=== PATIENT | female | born 1940 | race Caucasian/White ===

== ENCOUNTER 2022-11-18 06:55 | Observation (INO) | payer MEDICARE, OTHER ==
[2022-11-12 09:16] VITALS: BP 13/80
[~2022-11-18] VITALS: Ht 160 cm; Wt 81.8 kg
[2022-11-18] VITALS (11 sets, daily range): BP systolic 70–167; BP diastolic 46–90
[~2022-11-18 06:55] MED LIST: K2 PLUS D3 TAB1 EACH PO; LISINOPRIL10 MG PO
[2022-11-18 18:09] LABS: BASOPHILS 0.7 % (0-2); HEMATOCRIT 32.9 % (35.0-50.0); LYMPHOCYTES 4.6 % (24-44); MCH 30.2 (27-36); MCHC 33.4 g/dl (30-36); MCV 90.3 fl (81-99); MONOCYTES 3.1 % (0-12); NEUTROPHILS 91.6 % (39-80); PLATELET COUNT 253 K/uL (140-440); RBC 3.64 M/ul (4.3-5.7); RDW 14.2 (10.5-15.0)
[2022-11-18 18:22] LABS: ANION GAP 13.9 (7-21); BUN/CREATININE RATIO 14.52 (6.0-28.6); CALCIUM 8.7 mg/dL (8.5-10.1); CREATININE, SERUM 1.17 mg/dL (0.55-1.02); MAGNESIUM 1.8 mg/dL (1.8-2.4); POTASSIUM 3.9 mmol/L (3.5-5.1)
--- NOTE | 2022-11-18 18:54 | OR ---
[facility] [address] [place], [place] [address] Signed DATE OF OPERATION: 11/18/2022 SURGEON: Brandy Chavez MD PREOPERATIVE DIAGNOSES: Left breast cancer at the 5 o'clock position with pleomorphic calcifications 3 cm anterior to this breast cancer. POSTOPERATIVE DIAGNOSES: Left breast cancer at the 5 o'clock position with pleomorphic calcifications 3 cm anterior to this breast cancer. PROCEDURES: 1. Injection of methylene blue. 2. Left sentinel lymph node biopsy x1. 3. Left total mastectomy. 4. Placement of drains x2. ESTIMATED BLOOD LOSS: None. INDICATIONS: Karla is an 81-year-old female who still has good muscular mass and good functional status. 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 She has actually adopted some of the children. They come home for the summer to escape the heat and all the mosquitos. They go back every year to teach and be with her adoptive family. She had a mammogram in 2018, which was negative. She had a repeat mammogram on October 20, 2022. She had a mass at the 5 o'clock position in the left lower outer quadrant. 3 cm anterior to this mass was a pleomorphic calcifications. When she went back for the compression views, both areas persisted. She then had ultrasound-guided biopsy of the mass that same day. They felt it was 7 x 7 x 9 mm. It seemed to be possibly longer on the core needle biopsies. There was no obvious lymph nodes visualized radiographically. Of course, the radiologist had recommended stereotactic biopsies of the pleomorphic calcifications depending on clinical input. 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 The longus core measured 18 mm. Her ER and WV receptors were positive. The HER-2/laura was also positive. I had met with Karla in the office. Her family has already gone back up to [place] for the year. She has some other relatives in our area. I went through all her records in great detail with her. I gave her our brochure on Electronically Signed By: BRANDY CHAVEZ MD 11/18/22 3974 PATIENT NAME: KARLA SPARKS OPERATIVE REPORT DATE OF : 38 REPORT #: [id number] PHYSICIAN: BRANDY CHAVEZ MD PCP: SUZANNE VILLA REPORT IS CONFIDENTIAL AND NOT TO BE RELEASED WITHOUT AUTHORIZATION [facility] [address] [place], [place] [address] Signed breast, breast biopsies and breast surgery. We went through all the options including the stereotactic-guided biopsy of the pleomorphic calcifications. Her breasts are large enough, she could probably have a quadrantectomy and a sentinel lymph node biopsy. She told me she did not want to go that route. She wanted her entire breast removed. I explained her rather than remove her entire axilla, which increases the lymphedema rate of her arm we would proceed with a sentinel lymph node biopsy and that will place us directly below the axillary hairline as usual. That represents around 1/3 maybe a little more of the axilla. Of course, we would do more if necessary depending on the radionuclide scan. I was able to show her in the book and explained to her the nature of the surgery. She understands there will be two drains placed, one will be in the axilla. The other be across her chest wall. She will be in the hospital overnight and discharged home the following day. There is risk to the surgery including, but not limited to bleeding, infection, scarring, change in contour of the skin as well as possible need for additional surgery. We also reviewed the concept of adjuvant chemotherapy and radiation therapy. She had expressed understanding and wished to proceed. PROCEDURE IN DETAIL: I met with Toytasia and one of her friends in our preop area. Karla and I both agreed on the left breast. We marked that appropriately. She has already been to the Radiology Department this morning for injection of the technetium sulfur colloid. She has one sentinel lymph node lit up in the axilla in the usual position. After this, Karla was taken into the operating room and placed in the supine position under general endotracheal tube anesthesia. She was given preoperative antibiotics. She was given subcutaneous heparin. SCDs were utilized. She was then prepped and draped in the usual sterile fashion. I injected methylene blue underneath the nipple areolar complex. The area was gently massaged for 5 full minutes. After this, we used a silk suture to kenyatta out the standard transverse incision across the breast to include the nipple areolar complex. We developed that sharply with a knife and then additionally with the cautery. We carried that down towards axilla and we continued up towards the edge of the axillary hairline with the help of the Onset counter. We were able to go directly to the lymph node. It also contained a methylene blue. It was excised and passed off the field. There was no additional counts in the axilla whatsoever neither inferior up superiorly. I palpated in the upper part of the axilla, did not feel any additional lymph nodes. After this, we finished the mastectomy. We developed flaps all the way to the middle of the sternum up to the clavicle down the inframammary crease. We passed the area of the palpable mass a little closer to the skin and the rest of the flaps. It should be fine. We brought the entire specimen off the chest wall with the help of cautery medial to lateral and across the lateral edge of the pectoralis major muscle and down into the axilla just a bit to where we took out the sentinel lymph node. In this way, the entire specimen was removed en bloc. We then marked the specimen appropriately with a long stitch lateral, short stitch superior and a double stitch medial. The Electronically Signed By: BRANDY CHAVEZ MD 11/18/22 1854 PATIENT NAME: KARLA SPARKS OPERATIVE REPORT DATE OF : 38 REPORT #: [id number] PHYSICIAN: BRANDY CHAVEZ MD PCP: SUZANNE VILLA REPORT IS CONFIDENTIAL AND NOT TO BE RELEASED WITHOUT AUTHORIZATION [facility] [address] [place], [place] [address] Signed entire specimen was then passed off the field. The entire wound was irrigated and suctioned out until clear. We brought a #7 flat Bertram drain into the axilla below the inframammary crease. We cut at the length and held in place with 2-0 nylon suture. Additionally, we brought second 7 mm Bertram drain through the [facility] crease about 3 cm medial to that first drain and it comes around to the medial side of the sternum and back up towards the clavicle. It was also held in place to the level of skin with 2-0 nylon suture. The entire wound was copiously irrigated with warm water and suctioned out until clear. All hemostasis was excellent. We then closed the dermis with multiple interrupted 3-0 subcuticular Monocryl sutures. The skin edges were reapproximated with a running 5-0 fast absorbing plain gut suture. We cut the drain to length and put the bulb on the end of the drain tubing. Mastectomy team had fitted her for a camisole. While she was still asleep we put that in place with the appropriate fluffed gauze on the left side of her chest wall. After this we transferred over to her hospital bed. She was awakened from her anesthesia, extubated in the OR, and taken to recovery room in stable condition. Brandy Chavez MD ALB/MODL /[id number] cc: MD Suzanne Frost Copies: BRANDY CHAVEZ MD ~ Electronically Signed By: BRANDY CHAVEZ MD 11/18/22 1854 PATIENT NAME: KARLA SPARSK OPERATIVE REPORT DATE OF : 39 REPORT #: [id number] PHYSICIAN: BRANDY CHAVEZ MD PCP: SUZANNE VILLA REPORT IS CONFIDENTIAL AND NOT TO BE RELEASED WITHOUT AUTHORIZATION
[2022-11-18 23:38] LABS: ABO O
[2022-11-18 23:39] LABS: RH NEGATIVE
[2022-11-18 23:40] LABS: ANTIBODY SCREEN NEGATIVE
[2022-11-18 23:51] LABS: BASOPHILS 0.3 % (0-2); EOSINOPHILS 0.1 % (0-6); HEMATOCRIT 30.4 % (35.0-50.0); HEMOGLOBIN 10.1 g/dL (12.0-18.0); MCH 29.9 (27-36); MCHC 33.2 g/dl (30-36); MCV 89.9 fl (81-99); MONOCYTES 4.2 % (0-12); NEUTROPHILS 91.4 % (39-80); PLATELET COUNT 221 K/uL (140-440); RBC 3.38 M/ul (4.3-5.7)
[2022-11-19 02:03] VITALS: BP 110/48
[2022-11-19 05:57] VITALS: BP 103/45
[2022-11-19 06:07] LABS: ANION GAP 14.5 (7-21); BUN/CREATININE RATIO 17.54 (6.0-28.6); CALCIUM 8.6 mg/dL (8.5-10.1); CREATININE, SERUM 1.14 mg/dL (0.55-1.02); MAGNESIUM 2.5 mg/dL (1.8-2.4); POTASSIUM 4.5 mmol/L (3.5-5.1)
[2022-11-19 07:17] LABS: BASOPHILS 0.5 % (0-2); EOSINOPHILS 0.1 % (0-6); HEMATOCRIT 27.1 % (35.0-50.0); HEMOGLOBIN 9.2 g/dL (12.0-18.0); LYMPHOCYTES 14.9 % (24-44); MCH 30.7 (27-36); MCV 90.3 fl (81-99); NEUTROPHILS 75.5 % (39-80); PLATELET COUNT 187 K/uL (140-440); RDW 14.1 (10.5-15.0)
[2022-11-19 07:45] VITALS: BP 101/47
[2022-11-19 11:10] LABS: BASOPHILS 0.4 % (0-2); EOSINOPHILS 0.3 % (0-6); HEMATOCRIT 26.8 % (35.0-50.0); LYMPHOCYTES 17.3 % (24-44); MCH 29.9 (27-36); MCHC 33.4 g/dl (30-36); MCV 89.5 fl (81-99); PLATELET COUNT 136 K/uL (140-440); RBC 2.99 M/ul (4.3-5.7); RDW 14.3 (10.5-15.0)
[2022-11-19 12:27] VITALS: BP 100/45
[2022-11-19 12:34] LABS: IS CROSSMATCH COMPATIBLE
--- NOTE | 2022-11-19 12:40 | EKG ---
[facility] [address] [facility] [place] [address] Signed Normal sinus rhythm Septal infarct (cited on or before 12-NOV-2022) Abnormal ECG When compared with ECG of 12-NOV-2022 09:24, No significant change was found Confirmed by AVANI TREVINO MD ([id number]) on 11/19/2022 12:40:08 PM Electronically Signed By: AVANI TREVINO 11/19/22 1240 PATIENT NAME: WIL SPARKSARIANE NASCIMENTOUDE Electrocardiogram DATE OF : 38 PHYSICIAN: AVANI TREVINO REPORT #: [id number] REPORT IS CONFIDENTIAL AND NOT TO BE RELEASED WITHOUT AUTHORIZATION
[2022-11-19 19:08] LABS: BASOPHILS 0.6 % (0-2); EOSINOPHILS 1.8 % (0-6); HEMOGLOBIN 6.2 g/dL (12.0-18.0); LYMPHOCYTES 26.3 % (24-44); MCH 30.7 (27-36); MCHC 32.4 g/dl (30-36); MCV 94.6 fl (81-99); MONOCYTES 10.6 % (0-12); NEUTROPHILS 60.7 % (39-80); PLATELET COUNT 76 K/uL (140-440); RBC 2.01 M/ul (4.3-5.7)
[2022-11-19 20:12] LABS: BASOPHILS 0.9 % (0-2); EOSINOPHILS 1.9 % (0-6); HEMOGLOBIN 10.2 g/dL (12.0-18.0); LYMPHOCYTES 24.4 % (24-44); MCH 30.5 (27-36); MCHC 33.9 g/dl (30-36); MONOCYTES 9.8 % (0-12); PLATELET COUNT 208 K/uL (140-440); RBC 3.33 M/ul (4.3-5.7); RDW 14.4 (10.5-15.0)
[2022-11-19 21:04] VITALS: BP 116/49
[2022-11-20 03:03] VITALS: BP 120/49
[2022-11-20 05:58] VITALS: BP 116/46
[2022-11-20 08:46] VITALS: BP 125/45
--- NOTE | 2022-11-20 16:51 | PATH ---
[facility] [address] [facility] [place], [place] [address] Signed SPECIMEN(S): A LEFT SLN SPECIMEN(S): B LEFT BREAST SPECIMEN SOURCE: A. LEFT SLN B. LEFT BREAST CLINICAL HISTORY: Ductal carcinoma of left breast Specimen Time to Fixation- 11/18/2022 FINAL PATHOLOGIC DIAGNOSIS: A. Lymph node, left sentinel, excision: - One lymph node, negative for metastatic carcinoma (0/1) B. Breast, left, mastectomy: - Invasive ductal carcinoma, see synoptic report INVASIVE CARCINOMA OF THE BREAST: Resection Applies To: A, B SPECIMEN Procedure: Total mastectomy Specimen Laterality: Left TUMOR Tumor Site: Clock position 5 o'clock Histologic Type: Invasive carcinoma of no special type (ductal) Glandular (Acinar) / Tubular Differentiation: Score 3 Nuclear Pleomorphism: Score 2 Mitotic Rate: Score 3 Overall Grade: Grade 3 (scores of 8 or 9) Tumor Size: Greatest dimension of largest invasive focus (Millimeters) - 20 mm Ductal Carcinoma In Situ (DCIS): Not identified Lymphovascular Invasion: Not identified Microcalcifications: Not identified Treatment Effect in the Breast: No known presurgical therapy MARGINS Margin Status for Invasive Carcinoma: Invasive carcinoma present at margin Margin(s) Involved by Invasive Carcinoma: Inferior - Multifocal REGIONAL LYMPH NODES Regional Lymph Node Status: All regional lymph nodes negative for tumor PATIENT NAME: IEVTT SPARKS SUZANNA PATHOLOGY DATE OF : 38 REPORT #: [id number] PHYSICIAN: [employer] PATHOLOGY PCP: SABAS VILLA PHOTO LAB MANAGER REPORT IS CONFIDENTIAL AND NOT TO BE RELEASED WITHOUT AUTHORIZATION [facility] [address] [facility] [place] [address] Signed Total Number of Lymph Nodes Examined (sentinel and non-sentinel): 1 Number of Gardner Nodes Examined: 1 PATHOLOGIC STAGE CLASSIFICATION (pTNM, AJCC 8th Edition) Reporting of pT, pN, and (when applicable) pM categories is based on information available to the pathologist at the time the report is issued. As per the AJCC (Chapter 1, 8th Ed.) it is the managing physician's responsibility to establish the final pathologic stage based upon all pertinent information, including but potentially not limited to this pathology report. pT Category: pT1c Regional Lymph Nodes Modifier: (sn): Gardner node(s) evaluated. pN Category: pN0 Breast Biomarker Testing Performed on Previous Biopsy: Estrogen Receptor (ER) Status: Positive (greater than 10% of cells demonstrate nuclear positivity) Progesterone Receptor (PgR) Status: Positive HER2 (by immunohistochemistry): Positive (Score 3+) Testing Performed on COMMENT: For part A, an immunohistochemical stain for AE1/AE3 is performed and supports the above interpretation. As part of [facility]' Quality Improvement Program, this case was reviewed by another member of our pathology staff. BRP MICROSCOPIC EXAMINATION: Histologic sections of all submitted blocks are examined by light microscopy. These findings, together with the gross examination, support the pathologic diagnosis. GROSS DESCRIPTION: A. The specimen, labeled and designated "Joselito, Debra" and designated on the requisition "left sentinel lymph node," is received in formalin and consists of one yellow-grande blue-tinged possible lymph node (1.8 x 1.4 x 0.9 cm). The possible lymph node is serially sectioned and submitted entirely in cassette A1. Cold ischemic time: Cannot be calculated due to insufficient information The tissue was fixed in formalin for at least 24 and less than 48 hours B. The specimen, labeled and designated "Tae Sparks" and designated on the requisition "left breast," is received in formalin and consists of a mastectomy PATIENT NAME: IVETT SPARKS PATHOLOGY DATE OF : 38 REPORT #: [id number] PHYSICIAN: CYNTHIA QUINONES PCP: SABAS VILLA REPORT IS CONFIDENTIAL AND NOT TO BE RELEASED WITHOUT AUTHORIZATION [facility] [address] [place], [place] [address] Signed (1103 g, 21.5 cm superior to inferior, 19.4 cm medial to lateral, 7.0 cm anterior to posterior) with attached portion of grande-pink skin on the anterior aspect that measures 23.4 cm in length by 4.4 cm in width) with central brown-grande areola (4.0 x 3.7 cm) and grande everted nipple (1.2 x 1.2 x 0.7 cm). The specimen is inked as follows: Blue= Superior Green = Inferior Black = Posterior Specimen is serially sectioned from medial to lateral to reveal a white-grande firm mass (1.3 x 2.0 x 1.3 cm) at 5:00 located 0.1 cm from the inferior margin, 2.2 cm from the posterior margin, 6.5 cm from the skin, and 15 cm from the superior margin. There is a vision clip within the mass. The remaining cut surface shows yellow-grande fatty tissue. Forensic Materials Engineer sections are submitted as follows: Cassette Summary: (B1-B3) mass to inferior margin (B4) posterior margin closest to mass (B5) skin and superior margin closest to mass (B6) nipple, serially sectioned (B7) subadjacent section from nipple, shaved, en face (B8) upper inner quadrant (B9) lower inner quadrant (B10) upper outer quadrant (B11) lower outer quadrant Cold ischemic time: Cannot be calculated due to insufficient information The tissue was fixed in formalin for at least 24 and less than 48 hours AC (under the direct supervision of a pathologist) The Gross Description was prepared using a voice recognition system. The report was reviewed for accuracy; however, sound-alike word errors, addition and/or deletions may occur. If there is any question about this report, please contact Client Services. ADDITIONAL NOTES: Immunohistochemical and/or in situ hybridization studies if performed in this case included appropriate positive controls that reacted as expected. This test was developed and its performance characteristics determined by [facility]. It has not been cleared or approved by the U.S. Food and Drug Administration. The FDA has determined that such clearance or approval is not PATIENT NAME: IVETT SPARKS PATHOLOGY DATE OF : 38 REPORT #: [id number] PHYSICIAN: CYNTHIA QUINONES PCP: SABAS VILLA REPORT IS CONFIDENTIAL AND NOT TO BE RELEASED WITHOUT AUTHORIZATION [address] [address] Signed necessary. This test is used for clinical purposes. It should not be regarded as investigational or for research. [facility] is certified under the Clinical Laboratory Improvement Amendments of 1988 (CLIA) as qualified to perform high complexity clinical laboratory testing. PERFORMING LABORATORY: Technical component was performed by [facility], [address] [place] [id number] (CLIA# [id number]). Professional interpretation was performed by [facility] - [address] [id number] Diagnostician: Garrett Hou MD Pathologist Electronically Signed 11/20/2022 Copies: ~ PATIENT NAME: IVETT SPARKS PATHOLOGY DATE OF : 38 REPORT #: [id number] PHYSICIAN: [facility]IA PATHOLOGY PCP: SABAS VILLA REPORT IS CONFIDENTIAL AND NOT TO BE RELEASED WITHOUT AUTHORIZATION
--- NOTE | 2022-11-23 07:13 | DS ---
[facility] [address] [place], [place] [address] Signed ADMISSION DATE: 11/18/2022 DISCHARGE DATE: 11/20/2022 FINAL DIAGNOSES: 1. Left breast cancer. 2. Postoperative wound hematoma. PROCEDURES: 1. Injection of methylene blue. 2. Left sentinel lymph node biopsy x1. 3. Left total mastectomy. 4. Placement of subcutaneous drains x2. 5. Infusion 1 unit packed red blood cells. 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 She and her have been going to [place] [facility] every year to teach the [place] people. They have some adoptive children and grandchildren up there as well. They usually come home for the hoang here to [facility]. She was found to have a mass in the lower outer quadrant of the left breast at about the 5 o'clock position on her mammogram and ultrasound. About 3 cm anterior to that, she had an area of pleomorphic calcifications. Ultrasound-guided biopsy by the radiologist revealed a ductal carcinoma. The ER/MA receptors were positive. HER-2/laura is also positive. She had been asked to see me as the local general surgeon. The radiologist had recommended stereotactic biopsy of the pleomorphism calcifications as clinically indicated. After talking with Karla, she wanted a mastectomy. We therefore did not order the stereotactic biopsy. I explained to Karla we could actually do a sentinel lymph node biopsy and that would leave her with a simple, total mastectomy rather than a true modified radical mastectomy. Of course, the lymph node came back concerning she might need a completion axillary lymph node dissection. However, she understands the less we invade her axilla the less likely she will get lymphedema of her arm. She had expressed understanding and wished to proceed. We therefore had brought her into the hospital on 11/18/2022. She underwent the sentinel lymph node biopsy and we found just one lymph node. She had a left total mastectomy. We placed a drain in the axilla and went up over the chest wall. We kept overnight as usual. She had received 5000 units of heparin preoperatively but also received Lovenox 40 mg postoperatively. She had some bleeding into the axilla initially really not much up over the chest wall. Of course it dropped her hemoglobin from 13 down to 9. She was given some IV fluids. She was still a little orthostatic and hypotensive and tachycardic. With the help of our hospitalist service, we did give her 1 unit of blood with good results. Her hemoglobin stabilized at 10. She has been tolerating a regular diet. We had physical therapy see her Electronically Signed By: BRANDY CHAVEZ MD 11/23/22 0713 PATIENT NAME: KARLA SPARKS DISCHARGE SUMMARY DATE OF : 38 REPORT #: [id number] PHYSICIAN: BARNDY CHAVEZ MD PCP: SABAS VILLA REPORT IS CONFIDENTIAL AND NOT TO BE RELEASED WITHOUT AUTHORIZATION [address] [address] Signed initially for her left shoulder following the left mastectomy, but may also help her with some angulation as well. Today, she looks and feels much better. She has been up and down the hallways. She is sitting in a chair and eating and watching TV. She looks and feels much better. Her wound actually looks very good. The axilla actually is much softer. She has had some dark but thin serosanguineous fluid out both drains. Of course, most of that come out the axillary drain. There are no local signs or symptoms of infection. We decided not to re-enter her wound for evacuation of a hematoma. She knows that she is going to have some bruising, but overtime her body will resorb that hematoma. It is amazingly soft. DISCHARGE PLANS AND MEDICATIONS: Karla goes out in the [facility]. She does have a few neighbors, but it is a very small community. The rest of her family has already gone up to [place] for the winter. Her cousin here in [place], [place] is going to help her for a couple of days at a local hotel and if she feels comfortable, they are going to go ahead and return to the house out in the [facility]. They have already hired a neighbor girl to help do chores around the house including the chickens and her dogs. I have explained to Karla she will leave the incision open to air as she has here in the hospital. She can shower and bathe directly over the incision in the drains. Our nurses have taught her drain care and she will do that and record the drain output each day. We arranged for home health care to go visit her and check on the wound and her drains as well as her general overall activity and physical therapy. She has not used any narcotic pain medication. She said Tylenol will be fine, but she has not even used that. She only takes lisinopril 10 mg p.o. daily. Since her blood pressures are running a little soft, we are going to have her hold that for a week. Her systolic blood pressures are now back up to about 120s. She will be coming back in my office in one week for followup. In the meantime, she is welcome to perform her activities of daily living including walking up and down stairs and showering and bathing as usual but I have asked her not to do any heavy pushing, pulling, or lifting over about 10 pounds. If she needs to drive that is fine but she certainly should seek out help from some of her neighbors or her cousin. She has expressed understanding and agrees with the above plan. I have discussed this with Karla now several days in a row. She has expressed understanding and agrees with the above plan. Brandy Chavez MD ALB/MODL /[id number] Electronically Signed By: BRANDY CHAVEZ MD 11/23/22 07 PATIENT NAME: KARLA SPARKS DISCHARGE SUMMARY DATE OF : 38 REPORT #: [id number] PHYSICIAN: BRANDY CHAVEZ MD PCP: SABAS VILLA REPORT IS CONFIDENTIAL AND NOT TO BE RELEASED WITHOUT AUTHORIZATION [facility] [address] [facility] [place] [address] Signed cc: NEWTON Jackson MD Copies: BRANDY CHAVEZ MD ~ Electronically Signed By: BRANDY CHAVEZ MD 11/23/22712 PATIENT NAME: KARLA SPARKS DISCHARGE SUMMARY DATE OF : 38 REPORT #: [id number] PHYSICIAN: BRANDY CHAVEZ MD PCP: SABAS VILLA REPORT IS CONFIDENTIAL AND NOT TO BE RELEASED WITHOUT AUTHORIZATION
[2022-11-23 11:57] LABS: ABO O; RH NEGATIVE
== END 2022-11-20 13:42 | disposition home or self-care (01) ==
LOC: MS 06:55 → DS 06:55 → DSVR 06:55 → MS 08:00 → EDSTATUS 08:00 → NUC 08:00 → DS 13:50 → MS 13:50 → DSVR 13:50 → MS 13:50
PROVIDERS: Family Medicine; ADMIT Colon & Rectal Surgery; ATTEND Colon & Rectal Surgery
PROC: 0HTU0ZZ Resection of Left Breast, Open Approach (ICD-10-PCS; principal; 2022-11-18 09:00)
PROC: 07B60ZX Excision of Left Axillary Lymphatic, Open Approach, Diagnostic (ICD-10-PCS; 2022-11-18 09:00)
DX: C50.912 Malignant neoplasm of unspecified site of left female breast (principal); Z17.0 Estrogen receptor positive status [ER+]; L76.32 Postprocedural hematoma of skin and subcutaneous tissue following other procedure; I10 Essential (primary) hypertension; E78.5 Hyperlipidemia, unspecified; Z79.899 Other long term (current) drug therapy; Z20.822 Contact with and (suspected) exposure to COVID-19
CPT/HCPCS: 00400; 36415; 36430; 78195; 80048; 83735; 84100; 85025; 86850; 86900; 86901; 86922; 88307; 88342; 93005; 93010; 96361; 96372; 96374; 96375; 97162; A9541; G0378; J0690; J1100; J1644; J1650; J1885; J2001; J2405; J2704; J3010; J3475; J7121; P9016; Q9968; U0002

== ENCOUNTER 2022-12-01 06:50 | Day surgery (SDC) | payer MEDICARE, OTHER ==
[2022-12-01 07:19] VITALS: BP 136/60
--- NOTE | 2022-12-01 10:28 | NUR ---
12/01/22 Blake8 [facility] 1019-PATIENT ARRIVED TO PACU ON 6L MASK RR EVEN. PATIENT REACTIVE TO VERBAL STIMULI SLIGHTLY OPENING EYES. SR. IVF INFUSING. PATIENT ENCOURAGED TO TAKE DEEP BREATHES. DRESSING TO LEFT BREAST CDI. 2 HE DRAINS TO LEFT BREAST SANGUINOUS DRAINAGE. 1025-PATIENT AROUSING OPENING EYES DENIES PAIN OR NAUSEA. PATIENT ORIENTED X3. 6L MASK RR EVEN. EAR PROBE PLACED ON PATIENT FOR BETTER 02 READING.
--- NOTE | 2022-12-01 10:50 | NUR ---
PT ARRIVES TO ROOM VIA STRETCHER FROM PACU. REPORT RECEIVED FROM PACHECO SAWANT, NO FAMILY PRESENT AT BEDSIDE AT THIS TIME. PT IS A&O X4. PT REPORTS PAIN 1/10 AND TOLERABLE AT THIS TIME, AND NO DIZZINESS OR NAUSEA. DRESSING IS INTACT AND ICE PACK IN PLACE. X2 HE DRAINS TO SUCTION W/SMALL AMOUNT OF SEROUS DRAINAGE AT THIS TIME. PILLOW PLACED UNDER PT KNEES BILAT FOR COMFORT. CRACKERS, ICE WATER, AND JELLO PROVIDED AT THIS TIME. CALL LIGHT WITHIN REACH, PT REPORTS NO FURTHER NEEDS AT THIS TIME.
[2022-12-01 10:53] VITALS: BP 152/51
[2022-12-01 11:50] VITALS: BP 124/56
--- NOTE | 2022-12-01 11:50 | NUR ---
IN PT ROOM FOR HOURLY VS AND ASSESSMENT. VS TAKEN. PT REPORTS PAIN REMAINS 1/10 AT THIS TIME AND STATES THIS IS TOLERABLE, NO PRN PAIN MED GIVEN. DRESSING REMAINS C/D/I, NO SIGNS OF DRAINAGE AT THIS TIME, ICE PACK REMAINS IN PLACE. PT REMAINS ON RA W/O2 >90% VIA EAR PROBE. PT STATES NEED TO URINE VOID. PT TO BEDSIDE AND STATES MINIMAL DIZZINESS, EH DRAINS SECURED TO GOWN AT THIS TIME W/SLACK PRESENT ON TUBING. PT STANDS AT BEDSIDE AND STATES ONLY MINIMAL DIZZINESS AT THIS TIME. STANDBY ASSIST TO RESTROOM FOR 400 ML CLEAR/YELLOW URINE VOID. PT NOW BACK TO BED W/WARM BLANKETS, WATER AT BEDSIDE. DRAINS UNPINNED FROM GOWN AND AT PT LFT SIDE, SCANT AMOUNT OF SS DRAINAGE AT DRAIN #2 SITE. CALL LIGHT WITHIN REACH, NO FURTHER NEEDS AT THIS TIME.
[2022-12-01 12:45] VITALS: BP 120/53
--- NOTE | 2022-12-01 12:50 | NUR ---
IN ROOM FOR HOURLY VS AND ASSESSMENT. PT REPORTS NO CHANGES IN PAIN AT THIS TIME. PT REPORTS NO NAUSEA OR DIZZINESS. NO ACUTE CHANGES IN SURGICAL SITE DRESSING OR HE DRAINAGE AT THIS TIME. PT RESTING ON BED WATCHING TV AND STATES NO FURTHER NEEDS AT THIS TIME. DISCUSSED W/PT PLANS AFTER DISCHARGE AND ASKED IF SHE WAS READY TO GO HOME D/T ALL CRITERIA MET FOR DISCHARGE. PT STATES YES, BUT CHECK-IN AT THE [facility] BY THE [facility] ISN'T UNTIL 3 PM. PT STATES SHE DOES NOT HAVE A ROOM YET AT THIS TIME BUT WILL GO AND BOOK ONE UPON DISCHARGE. ASKED PT IF HER COUSIN WILL BE STAYING WITH HER TONIGHT AND PT STATES SHE WILL JUST BE CHECKING ON HER, BUT STAYING AT HER OWN HOUSE W/HER CHILDREN. THIS RN TO CALL [facility] TO ENSURE VACANCY AND IF THEY ALLOW EARLY CHECK-IN. CALL LIGHT WITHIN REACH.
--- NOTE | 2022-12-01 13:07 | NUR ---
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 SCOTT GRIGSBY STATES VERBAL UNDERSTANDING AND NO UPDATED ORDERS FOR OVERNIGHT STAY. SCOTT GRIGSBY STATES PT IS STILL OKAY FOR DISCHARGE TO HOT TO STAY BY HERSELF OVERNIGHT. PT UPDATED. PT REQUESTS CALL TO COUSIN AT THIS TIME FOR UPDATE, AND LUNCH ORDER TAKEN.
--- NOTE | 2022-12-01 13:44 | NUR ---
PT LUNCH DELIVERED, PT STATES NO FURTHER NEEDS AT THIS TIME. CALL LIGHT WITHIN REACH.
[2022-12-01 14:05] VITALS: BP 123/53
--- NOTE | 2022-12-01 14:05 | NUR ---
IN PT ROOM FOR ASSESSMENT. PT STATES NO CHANGES IN PAIN AT THIS TIME AND NO NEW NAUSEA, DIZZINESS, OR SOB. HE DRAINS DRAINING TO SUCTION, SMALL AMOUNT OF SEROUS FLUID IN DRAINS AT THIS TIME. PT ATE 100% OF SANDWICH AND WATER REMAINS AT BEDSIDE, PT ENCOURAGED TO DRINK FLUIDS, PT STATES VERBAL UNDERSTANDING. CALL LIGHT WITHIN REACH, NO FURTHER NEEDS AT THIS TIME.
--- NOTE | 2022-12-01 14:20 | NUR ---
IN PT ROOM TO ASSIST WITH GETTING DRESSED. X2 HE DRAINS SECURED W/APPROPRIATE AMOUNT OF TUBE SLACK TO SHIRT W/SAFETY PIN. PT WAITING FOR COUSIN TO COME PICK HER UP AND TAKE HER TO CHECK IN AT [facility]. CALL LIGHT WITHIN REACH.
--- NOTE | 2022-12-01 14:40 | NUR ---
DISCHARGE EDUCATION PROVIDED, PT STATES VERBAL UNDERSTANDING AND NO FURTHER QUESTIONS AT THIS TIME. ALL BELONGINGS IN PT POSSESSION. PT OFF OF UNIT VIA WC BY THIS RN TO PASSENGER SIDE OF COUSIN'S VEHICLE. PT REPORTS NO FURTHER NEEDS AT THIS TIME.
--- NOTE | 2022-12-01 16:20 | NUR ---
THIS RN CALLED PT AT THIS TIME TO VERIFY PT WAS ABLE TO GET A ROOM AND CHECK IN TO [facility], PT VERFIED AND VERBALLY CONFIRMED. NO FURTHER QUESTIONS OR NEEDS AT THIS TIME.
--- NOTE | 2022-12-02 07:52 | OR ---
[facility] [address] [place], [place] [address] Signed DATE OF OPERATION: 12/01/2022 SURGEON: Brandy Chavez MD PREOPERATIVE DIAGNOSIS: Positive margin, left breast cancer (5 o'clock). POSTOPERATIVE DIAGNOSIS: Positive margin, left breast cancer (5 o'clock). PROCEDURES: 1. Re-excision of inferior flap. 2. Wedge skin excision inferior flap at 5 o'clock position (4 x 4 x 4 cm). 3. Placement of 7-Albanian Bertram drain, left axilla. ESTIMATED BLOOD LOSS: Minimal. INDICATIONS: Karla is an 81-year-old female, who came with a breast cancer at the 5 o'clock position. We had performed a total mastectomy with sentinel lymph node biopsy 13 days ago. Intraoperatively it seemed like the cancer may be closer to the skin what we thought based on the radiographic reports. We were not sure if that was indurated from her core needle biopsies or that was actually the cancer. The pathology came back with what looks like 2 cm cancer fairly close to the skin if not positive margin. I had spoke with our pathologist who had reviewed that with me. I explained to Karla we needed to take her back and re-excise the inferior flap and possible even a wedge of skin in that area. Fortunately, Karla has rather large breast and she had rather significant amount of skin that we could use for the surgery. I reviewed with her in detail including the surgery. We are going to reopen the old incision and possibly take out that, wedge of skin as well. She understands she can go home after this surgery. She is quite familiar with drain care at this point. She is going to stay in town for tonight with her cousin and she will end up traveling to [place] to her house in [place]. There is risk including, but not limited to bleeding, infection, scarring, change in contour of the skin as well as possible need for additional surgery and certainly additional followup with the radiation and medical oncologist. She had expressed understanding and wished to proceed. PROCEDURE IN DETAIL: I met with Karla and our nurse, Dianelys, in the preop area. We all agreed it is quite Electronically Signed By: BRANDY CHAVEZ MD 12/02/22 0752 PATIENT NAME: KARLA SPARKS OPERATIVE REPORT DATE OF : 38 REPORT #: [id number] PHYSICIAN: BRANDY CHAVEZ MD PCP: SABAS VILLA REPORT IS CONFIDENTIAL AND NOT TO BE RELEASED WITHOUT AUTHORIZATION [address] [address] Signed obvious on the left side and we marked that appropriately. After this, Karla was taken to the operating room and placed in the supine position under general LMA anesthesia. She was given preoperative antibiotics along with subcutaneous heparin. SCDs were utilized. She had been prepped and draped in the usual sterile fashion. We opened up her previous incision and we found that she had some hematoma in the axilla. We evacuated that with the help of some saline. The upper flap was nicely adherent to her pectoralis major muscle. There was no blood between that flap in that muscle. That medial drain comes up to the medial side of the incision and up over that flap. We decided to leave that in place since it was well incorporated. We took out the drain in the axilla of course. We then excised a good 0.5 inch thick of the tissue along that inferior flap down to the inframammary crease. We could see that there was a place at the 5 o'clock position where her previous cancer had been. It was a little gritty, but we got between the skin and we had a nice soft plane of adipose tissue. This entire specimen was at least 10-12 cm in length and a couple of cm wide. We took it out en bloc. We then marked it appropriately with stitch with one long stitch lateral, short stitch superior and a double stitch medial. We looked at the area where the cancer had been in that area. That skin flap was fairly thin. She has a lot of redundant skin, so we decided to take out a wedge of tissue measuring 4 x 4 x 4 cm, meaning an equilateral triangle. Again, we marked that specimen the same with a long stitch lateral, short stitch superior and then two stitches medial. We irrigated out the wound nicely and brought a new 7-Albanian flat Bertram drain into the axilla and held it in place at the level of skin through a new skin incision below the inframammary crease. We then brought the skin back together with multiple interrupted 3-0 subcuticular Monocryl sutures. We then brought the skin edges together with a running 5-0 fast absorbing plain gut suture. This gave a nice shield incision and a nice cosmetic result. Dry gauze and tape was then applied. Karla was awakened from her anesthesia, extubated in the OR, and taken to recovery room in stable condition. Brandy Chavez MD ALB/MODL /[id number] cc: PUJA Jackson MD Electronically Signed By: BRANDY CHAVEZ MD 12/02/22 0752 PATIENT NAME: KARLA SPARKS OPERATIVE REPORT DATE OF : 38 REPORT #: [id number] PHYSICIAN: BRANDY CHAVEZ MD PCP: SABAS VILLA REPORT IS CONFIDENTIAL AND NOT TO BE RELEASED WITHOUT AUTHORIZATION [address] [address] Signed Copies: BRANDY CHAVEZ MD ~ Electronically Signed By: BRANDY CHAVEZ MD 12/02/22 0752 PATIENT NAME: KARLA SPARKS OPERATIVE REPORT DATE OF : 38 REPORT #: [id number] PHYSICIAN: BRANDY CHAVEZ MD PCP: SABAS IVLLA REPORT IS CONFIDENTIAL AND NOT TO BE RELEASED WITHOUT AUTHORIZATION
--- NOTE | 2022-12-07 10:30 | PATH ---
[facility] [address] [place], [place] [address] Signed SPECIMEN(S): A LEFT LOWER BREAST FLAP SPECIMEN(S): B ADDITIONAL LEFT LOWER BREAST FLAP SPECIMEN SOURCE: A. LEFT LOWER BREAST FLAP B. ADDITIONAL LEFT LOWER BREAST FLAP CLINICAL HISTORY: A. Left lower breast flap. Ductal carcinoma of left breast. B. Additional left lower breast flap. Ductal carcinoma of left breast. C50.912 (Malignant neoplasm of unspecified site of left female breast) FINAL PATHOLOGIC DIAGNOSIS: A. Breast, left lower, excision: - Benign breast tissue with prior procedural site changes - Negative for invasive or in situ carcinoma B. Breast, additional left lower, excision: - Benign skin and breast tissue with prior procedural site changes - Negative for invasive or in situ carcinoma BRP MICROSCOPIC EXAMINATION: Histologic sections of all submitted blocks are examined by light microscopy. These findings, together with the gross examination, support the pathologic diagnosis. GROSS DESCRIPTION: A. The specimen, labeled and designated "Jayson Sparks, left lower breast flap long stitch lateral short stitch superior," is received in formalin and consists of 46 g oriented portion of yellow-grande, focally congested fibroadipose tissue that is 14.6 x 5.2 x 2.6 cm. A short suture is present and identifies the superior margin, a long suture identifies the lateral margin, and a double suture identifies the medial margin. The specimen is inked as follows: superior - blue; inferior - green; medial - red; lateral - orange; anterior - yellow; and posterior - black. The tissue is serially sectioned from medial to lateral into 38 slices revealing an indurated, focally congested yellow-grande adipose tissue that involves approximately 95% of the specimen with focal areas of yellow chalky material. No discrete mass lesions are grossly identified. Every other slice PATIENT NAME: IVETT SPARKS PATHOLOGY DATE OF : 38 REPORT #: [id number] PHYSICIAN: CYNTHIA PATHOLOGY PCP: SABAS VILLA REPORT IS CONFIDENTIAL AND NOT TO BE RELEASED WITHOUT AUTHORIZATION [facility] [address] [place], [place] [address] Signed is submitted for histologic examination. Cassette Summary: (A1) slice one and three (A2) slice five (A3) slice seven (A4) slice nine (A5) slice 11 (A6) slice 13 (A7) slice 15 (A8) slice 17 (A9) slice 19 and 21 (A10) slice 23 (A11) slice 25 (A12-A13) slice 27 (A14-A15) slice 29 (A16-A17) slice 31 (A18-A19) slice 33 (A20-A21) slice 35 (A22-A23) slice 37 (A24) slice 39 Cold ischemia time: Insufficient data to calculate. Approximate Formalin time: 70 hours and 30 minutes. B. The specimen, labeled and designated "Jayson Sparks " and designated on the requisition "additional inferior flap skin breast long stitch lateral short stitch superior, double stitch medial," is received in formalin and consists of 22 g oriented, triangular portion of yellow-grande fibroadipose tissue that is 8.8 x 6.7 x 1.5 cm and partially surfaced by pale pink wrinkled skin. A short suture is present and identifies the superior margin, a long suture identifies the lateral margin, and a double suture identifies the medial margin. The specimen is inked as follows: superior - blue; inferior - green; medial - red; lateral - orange; anterior -skin; and posterior - black. The specimen is serially sectioned from medial to lateral revealing approximately 95% of the specimen is a yellow-grande greasy adipose tissue and 5% of the delicate pink fibrous tissue. No discrete mass lesions are grossly identified. Environmental Marketer sections are submitted in cassettes B1-B9. Cold ischemia time: Insufficient data to calculate. Approximate Formalin time: 70 hours and 30 minutes. FB (under the direct supervision of a pathologist) PATIENT NAME: IVETT SPARKS PATHOLOGY DATE OF : 38 REPORT #: [id number] PHYSICIAN: CYNTHIA QUINONES PCP: SABAS VILLA REPORT IS CONFIDENTIAL AND NOT TO BE RELEASED WITHOUT AUTHORIZATION [address] [address] Signed The Gross Description was prepared using a voice recognition system. The report was reviewed for accuracy; however, sound-alike word errors, addition and/or deletions may occur. If there is any question about this report, please contact Client Services. ADDITIONAL NOTES: Immunohistochemical and/or in situ hybridization studies if performed in this case included appropriate positive controls that reacted as expected. This test was developed and its performance characteristics determined by [facility]. It has not been cleared or approved by the U.S. Food and Drug Administration. The FDA has determined that such clearance or approval is not necessary. This test is used for clinical purposes. It should not be regarded as investigational or for research. [facility] is certified under the Clinical Laboratory Improvement Amendments of 1988 (CLIA) as qualified to perform high complexity clinical laboratory testing. PERFORMING LABORATORY: Technical component was performed by [facility], [address] [place] [address] (CLIA# [id number]). Professional interpretation was performed by [facility], [address] [place] [address] (CLIA#: [id number]). Diagnostician: Garrett Hou MD Pathologist Electronically Signed 12/07/2022 Copies: ~ PATIENT NAME: IVETT SPARKS PATHOLOGY DATE OF : 38 REPORT #: [id number] PHYSICIAN: CYNTHIA QUINONES PCP: SABAS VILLA REPORT IS CONFIDENTIAL AND NOT TO BE RELEASED WITHOUT AUTHORIZATION
== END 2022-12-01 14:40 | disposition home or self-care (01) ==
LOC: DS 06:50
PROVIDERS: ATTEND Colon & Rectal Surgery
PROC: 0HBU0ZZ Excision of Left Breast, Open Approach (ICD-10-PCS; principal; 2022-12-01 08:30)
DX: C50.512 Malignant neoplasm of lower-outer quadrant of left female breast (principal); I10 Essential (primary) hypertension; E78.5 Hyperlipidemia, unspecified
CPT/HCPCS: 00400; 88307; J0131; J0690; J1100; J1644; J1885; J2001; J2405; J2704; J3010; J7121